=== PATIENT | male | born 1985 | race African-American/Black ===

== ENCOUNTER 2019-10-17 16:38 | Emergency (ER) | payer SELFPAY ==
[~2019-10-17] VITALS: Ht 177.8 cm; Wt 84.1 kg
[~2019-10-17 16:38] MED LIST: MED FOR NIGHTMARES; MOTRIN 800800 MG/TAB PO; PERCOCET 325 MG1 TA2 PO
[2019-10-17 18:11] VITALS: BP 141/90; PULSE 71
[2019-10-17 18:14] VITALS: TEMP 98
== END 2019-10-17 18:15 | disposition home or self-care (01) ==
LOC: COL.ER 16:38
DX: R50.9 Fever, unspecified (principal); R05 Cough
CPT/HCPCS: J1100

== ENCOUNTER 2019-11-14 18:57 | Emergency (ER) | payer OTHER ==
[~2019-11-14] VITALS: Ht 177.8 cm; Wt 79.5 kg
[2019-11-14 19:11] VITALS: TEMP 98.3
[2019-11-14] MEDS ORDERED: PHENERGAN 25 TA25 MG PO (19:56)
[2019-11-14 20:06] VITALS: BP 115/98; PULSE 65
== END 2019-11-14 20:06 | disposition home or self-care (01) ==
LOC: COL.ER 18:57
DX: K52.9 Noninfective gastroenteritis and colitis, unspecified (principal)

== ENCOUNTER 2020-07-10 13:40 | Emergency (ER) | payer OTHER ==
[~2020-07-10] VITALS: Ht 177.8 cm; Wt 77.3 kg
[~2020-07-10 13:40] MED LIST changes: +PHENERGAN 25 TA25 MG PO
[2020-07-10 14:46] LABS: BASO # 0.1 (0.0-0.2); BASO % 0.9 % (0.0-2.0); EOS # 0.3 (0.0-0.7); EOS % 3.9 % (0-4.0); GRAN # 2.5 (1.4-6.5); GRAN % 36.8 % (42.2-75.2); HEMATOCRIT 42.8 % (42.0-52.0); HEMOGLOBIN 14.3 g/dl (13.5-18.0); LYMPH # 3.6 (1.2-3.4); LYMPH % 53.1 % (20.0-51.0); MEAN CELL VOLUME 100 fl (80.0-100.0); MEAN CORPUSCULAR HEMOGLOBIN 33 pg (27.0-31.0); MEAN CORPUSCULAR HGB CONC 33 g/dl (33.0-37.0); MEAN PLATELET VOLUME 9.8 fl (7.4-10.4); MONO # 0.3 (0.1-0.6); MONO % 4.9 % (1.7-9.3); PLATELET COUNT 239 K/mm3 (130-400); RED BLOOD COUNT 4.28 M/mm3 (4.20-5.60); REDCELL DISTRIBUTION WIDTH-CV 12.8 % (11.5-14.5)
[2020-07-10 14:52] LABS: ALANINE AMINOTRANSFERASE 19 U/L (4-49); ALBUMIN 4.3 gm/dL (3.5-5.0); ALKALINE PHOSPHATASE 52 U/L (50-136); ANION GAP 6 mmol/L (7-16); AST,SGOT 26 U/L (15-37); BILIRUBIN,TOTAL 0.1 mg/dL (0.0-1.0); BLOOD UREA NITROGEN 11 mg/dL (9-20); CALCIUM 9.5 mg/dL (8.4-10.2); CARBON DIOXIDE 34 mmol/L (22-30); CHLORIDE 100 mmol/L (98-107); CREATININE, serum 1.19 (0.66-1.25); GLUCOSE 74 mg/dL (74-106); SODIUM 139 mmol/L (137-145); TOTAL PROTEIN 7.6 gm/dL (6.4-8.2)
[2020-07-10 14:57] LABS: COLLECTION METHOD CLEAN CATCH
[2020-07-10 15:06] LABS: MUCOUS Present /lpf; PH 5 (5-8); SQUAMOUS EPITHELIAL 0-2 /hpf; URINE APPEARANCE Clear; URINE BACTERIA None Seen /hpf; URINE BILIRUBIN Negative (NEGATIVE); URINE BLOOD Negative (NEGATIVE); URINE COLOR Yellow; URINE GLUCOSE Negative (NEGATIVE); URINE KETONE Negative (NEGATIVE); URINE LEUKOCYTE ESTERASE Negative (NEGATIVE); URINE NITRATE Negative (NEGATIVE); URINE PROTEIN(semi-quant) Negative (NEGATIVE); URINE RBC None Seen /hpf; URINE UROBILINOGEN Negative (NEGATIVE)
[2020-07-10 15:07] LABS: ACETAMINOPHEN < 10 ug/mL (10-30); ALCOHOL(ethanol),MEDICAL < 10 mg/dL; SALICYLATE < 1.0 mg/dL
[2020-07-10 15:15] LABS: TRICYCLIC ANTIDEPRESS URINE NEGATIVE
[2020-07-11 11:52] VITALS: TEMP 97.4
[2020-07-11 18:09] VITALS: BP 126/78; PULSE 78
== END 2020-07-11 18:09 | disposition home or self-care (01) ==
LOC: COL.ER 13:40
PROVIDERS: Nurse Practitioner Primary Care
DX: R45.851 Suicidal ideations (principal); Z20.822 Contact with and (suspected) exposure to COVID-19